=== PATIENT | male | born 1970 | race African-American/Black ===

== ENCOUNTER → 2017-08-12 | Emergency (ER) | payer MEDICAID, OTHER ==
[~2017-08-12] VITALS: Ht 182.9 cm; Wt 86.2 kg
[~2017-08-12] MED LIST: AMLODIPINE BESY10 MG ORAL; IBUPROFEN600 MG ORAL; LISINOPRIL20 MG ORAL; NKM; NORCO 5-325 TA1 EACH ORAL; ROBAXIN-750750 MG PO; SPIRONOLACTONE25 MG ORAL; TRAMADOL HCL50 MG ORAL
[2017-08-12 16:49] VITALS: BP 160/90
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
[2017-08-12 17:54] VITALS: BP 160/90
--- NOTE | 2017-08-13 08:34 | Diagnostic Imaging Report ---
Indication: Pain, status post fall, head trauma Technique: Continuous helical CT scanning of the head was performed without intravenous contrast material. Axial and coronal 5 mm sections were generated. Radiation dose was minimized using automated exposure control Dose: Total Dose Length Product - DLP 1308.[address] Dose Index - CTDIvol(s) 70.38 mGy. Comparison: 02/12/2015 Findings: The ventricular system is normal in size and configuration. There is no shift of midline structures. No abnormal extra-axial fluid collections are noted. There is no evidence of intracerebral bleeding. No other abnormal high or low density areas are noted within the brain. Normal woodall-white differentiation. Intact calvarium. Visualized orbits and sinuses are unremarkable. No significant interim change Impression: Normal CT scan of the head without contrast material. This agrees with the preliminary interpretation provided overnight by [facility]. The CT scanner at [facility] is accredited by the [employer] and the scans are performed using protocols designed to limit radiation exposure to as low as reasonably achievable to attain images of sufficient resolution adequate for diagnostic evaluation.
== END | disposition home or self-care (01) ==
LOC: EMR 17:17
DX: S00.03XA Contusion of scalp, initial encounter (principal); S00.81XA Abrasion of other part of head, initial encounter; Y04.2XXA Assault by strike against or bumped into by another person, initial encounter; Y92.89 Other specified places as the place of occurrence of the external cause; I10 Essential (primary) hypertension; R51 Headache
CPT/HCPCS: 70450; 99284

== ENCOUNTER 2017-12-10 13:01 | Emergency (ER) | payer MEDICAID ==
[~2017-12-10] VITALS: Ht 182.9 cm; Wt 86.2 kg
[2017-12-10] MEDS ORDERED: high blood pressure ORAL (13:28)
[2017-12-10] MEDS ORDERED: Enalaprilat 2.5mg/2ml Inj IV ONE (13:45)
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
--- NOTE | 2017-12-10 14:18 | Diagnostic Imaging Report ---
Indication: Headache Technique: Contiguous 5 mm thick transaxial imaging of the head obtained in a Siemens Sensation [address] scanner. Soft tissue and bone windows generated. Automatic Exposure Control was utilized. Total Dose length Product (DLP): [address] Dose Index Volume (CTDIvol): 70.38 mGy Comparison: 08/12/2017 Findings: The size and configuration of the cortical sulci, basal cisterns, and ventricles are within normal limits for age. There is no mass effect, midline shift, or edema identified. There is no evidence of acute hemorrhage or abnormal intra-axial or extra-axial fluid collections. The bones and soft tissues are unremarkable. Impression: No mass effect, edema or acute bleed. The CT scanner at [facility] is accredited by the [employer] and the scans are performed using dose optimization techniques as appropriate to a performed exam including Automatic Exposure control.
[2017-12-10 14:42] VITALS: BP 174/108
[2017-12-10 14:54] LABS: BASOPHILS % (AUTO) 1.9 % (0.0-2.0); EOSINOPHILS % (AUTO) 3.5 % (0.0-3.0); HEMATOCRIT 46.8 % (42.0-52.0); HEMOGLOBIN 16.2 G/DL (14.2-18.0); LYMPHOCYTES % (AUTO) 30.3 % (20.0-45.0); MEAN CORPUSCULAR VOLUME 95 FL (80-99); NEUTROPHILS % (AUTO) 52.2 % (45.0-75.0); PLATELET COUNT 284 K/UL (150-450); RED BLOOD COUNT 4.93 M/UL (4.70-6.10); RED CELL DISTRIBUTION WIDTH 12.8 % (11.6-14.8)
[2017-12-10 15:02] LABS: ANION GAP 9 mmol/L (5-15); BLOOD UREA NITROGEN 15 mg/dL (7-18); CARBON DIOXIDE 26 MMOL/L (21-32); CHLORIDE 104 MMOL/L (98-107); CREATININE 1.3 MG/DL (0.55-1.30); POTASSIUM 4.3 MMOL/L (3.5-5.1); SODIUM 139 MMOL/L (136-145)
[2017-12-10 15:13] LABS: ALANINE AMINOTRANSFERASE 16 U/L (12-78); ALBUMIN 3.3 G/DL (3.4-5.0); ALBUMIN/GLOBULIN RATIO 0.7 (1.0-2.7); ALKALINE PHOSPHATASE 90 U/L (46-116); ASPARTATE AMINO TRANSFERASE 17 U/L (15-37); BILIRUBIN,TOTAL 0.3 MG/DL (0.2-1.0)
[2017-12-10 15:15] LABS: APPEARANCE,URINE CLEAR; BILIRUBIN, URINE NEGATIVE (NEGATIVE); GLUCOSE, URINE (UA) NEGATIVE (NEGATIVE); KETONES,URINE NEGATIVE (NEGATIVE); LEUKOCYTE ESTERASE ,URINE NEGATIVE (NEGATIVE); NITRITE,URINE NEGATIVE (NEGATIVE); PH,URINE 6 (4.5-8.0); PROTEIN,URINE 2+ (NEGATIVE); UROBILINOGEN,URINE 4 MG/DL (0.0-1.0)
[2017-12-10 15:16] LABS: COLOR,URINE YELLOW
--- NOTE | 2017-12-10 15:24 | Diagnostic Imaging Report ---
Indication: Chest pain Comparison: 02/20/2015 A single view chest radiograph was obtained. Findings: Cardiomediastinal appearance is within normal limits for age. The lungs are clear. Pulmonary vascularity is appropriate. The diaphragmatic contour is smooth and costophrenic angles are sharp. No pleural effusions are identified. The bones are unremarkable. Impression: No acute findings
[2017-12-10] MEDS ORDERED: LORazepam Inj 2mg/ml 1ml IV ONE (15:45)
[2017-12-10 17:13] VITALS: BP 132/83
[2017-12-10 19:19] VITALS: BP 133/90
--- NOTE | 2017-12-14 12:19 | Cardiology Report ---
APPROVED REPORT EKG Measurement Heart [id number] HI [id number] Normal sinus rhythm Cannot rule out Anterior infarct, age undetermined T-wave abnormality, consider inferolateral ischemia Abnormal ECG
== END 2017-12-10 19:20 | disposition other institution (70) ==
LOC: EMR 14:01
DX: R53.1 Weakness (principal); I16.0 Hypertensive urgency; I10 Essential (primary) hypertension; R51 Headache; R55 Syncope and collapse
CPT/HCPCS: 36415; 70450; 71045; 80053; 80307; 80329; 81001; 83880; 84443; 84484; 85025; 85610; 85730; 93005; 96374; 96375; 99285

== ENCOUNTER 2018-03-09 14:00 | Emergency (ER) | payer MEDICAID ==
[~2018-03-09] VITALS: Ht 182.9 cm; Wt 81.6 kg
[~2018-03-09 14:00] MED LIST changes: +high blood pressure ORAL
[2018-03-09] MEDS ORDERED: UNOBMED (14:15)
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
[2018-03-09 15:00] VITALS: BP 145/104
--- NOTE | 2018-03-09 15:00 | Emergency Room Report ---
History of Present Illness General Chief Complaint: Syncope Source: Patient Present Illness HPI Patient is a 47-year-old male presented after a witnessed syncopal episode. Syncopal episode. Patient stated this occurred several days ago. He reports having prior history of hypertension. He reports having recently had his medications adjusted. Patient was noted to have last episode of nasal bleeding approximately 2 days ago but stated that he had been having intermittent episodes of nasal bleeding for several months. Patient states he has been doing "everything right". He reports being compliant with his blood pressure medications. He denies any severe headache. He reported having a syncopal episode after standing for several minutes. He denies any prior palpitations. He reported feeling lightheaded prior to passing out. Allergies: Coded Allergies: NO KNOWN ALLERGIES (Unverified Allergy, Unknown, 03/09/18) Patient History Past Medical History: see triage record Reviewed Nursing Documentation: PMH: Agreed; PSxH: Agreed Nursing Documentation-PMH Past Medical History: No History, Except For Hx Cardiac Problems: No - HEART DISEASE Hx Hypertension: Yes Hx Pacemaker: No Hx Asthma: No Hx COPD: No Hx Diabetes: No Hx Cancer: No Hx Gastrointestinal Problems: No Hx Dialysis: No Hx Neurological Problems: No Hx Cerebrovascular Accident: No Hx Seizures: No Hx Headaches: Yes Review of Systems All Other Systems: negative except mentioned in HPI Physical Exam Vital Signs Date Time Temp Pulse Resp B/P (MAP) Pulse Ox O2 Delivery O2 Flow Rate FiO2 03/09/18 14:06 98.4 90 18 145/104 97 Room Air Sp02 EP Interpretation: reviewed, normal General Appearance: normal inspection, well appearing, no apparent distress, alert, GCS 15, non-toxic Head: atraumatic ENT: normal ENT inspection, hearing grossly normal, normal voice, other - no nasal bleeding noted Neck: normal inspection, full range of motion, supple, no bony tend Respiratory: normal inspection, lungs clear, normal breath sounds, no respiratory distress, no retraction, no wheezing Cardiovascular #1: regular rate, rhythm, no edema Gastrointestinal: normal inspection, normal bowel sounds, non tender, soft, no guarding, no hernia Genitourinary: no CVA tenderness Musculoskeletal: normal inspection, back normal, normal range of motion Neurologic: normal inspection, alert, oriented x3, responsive, 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 Differential diagnosis included but was not limited to arrhythmia, orthostatic hypotension, hypovolemia, vasovagal, anemia among others. Because of complexity of patient's case laboratory testing and imaging studies were ordered. EKG interpreted by me showed normal sinus rhythm with a rate of [address] or T wave changes. Patient's laboratory testing was unremarkable. This may be somewhat causal for his intermittent epistaxis however he he does not appear to be intoxicated with cocaine at this time . patient will be noted to be mildly hypertensive.. There is no active bleeding from his nose. Patient had a previous history of cocaine abuse per his old chart.Patient syncope appears to be orthostatic as he was having premonitory symptoms. Labs Test 03/09/18 14:54 White Blood Count 7.3 K/UL (4.8-10.8) Red Blood Count 5.03 M/UL (4.70-6.10) Hemoglobin 15.7 G/DL (14.2-18.0) Hematocrit 48.0 % (42.0-52.0) Mean Corpuscular Volume 95 FL (80-99) Mean Corpuscular Hemoglobin 31.3 PG (27.0-31.0) Mean Corpuscular Hemoglobin Concent 32.8 G/DL (32.0-36.0) Red Cell Distribution Width 15.4 % (11.6-14.8) Platelet Count 293 K/UL (150-450) Mean Platelet Volume 5.9 FL (6.5-10.1) Neutrophils (%) (Auto) 52.0 % (45.0-75.0) Lymphocytes (%) (Auto) 34.2 % (20.0-45.0) Monocytes (%) (Auto) 7.9 % (1.0-10.0) Eosinophils (%) (Auto) 4.1 % (0.0-3.0) Basophils (%) (Auto) 1.8 % (0.0-2.0) Prothrombin Time 10.3 SEC (9.30-11.50) Prothromb Time International Ratio 1.0 (0.9-1.1) Activated Partial Thromboplast Time 33 SEC (23-33) Sodium Level 140 MMOL/L (136-145) Potassium Level 4.1 MMOL/L (3.5-5.1) Chloride Level 103 MMOL/L (98-107) Carbon Dioxide Level 28 MMOL/L (21-32) Anion Gap 9 mmol/L (5-15) Blood Urea Nitrogen 17 mg/dL (7-18) Creatinine 1.2 MG/DL (0.55-1.30) Estimat Glomerular Filtration Rate > 60 mL/min (>60) Glucose Level 131 MG/DL (74-106) Calcium Level 9.5 MG/DL (8.5-10.1) Total Bilirubin 0.3 MG/DL (0.2-1.0) Aspartate Amino Transf (AST/SGOT) 18 U/L (15-37) Alanine Aminotransferase (ALT/SGPT) 17 U/L (12-78) Alkaline Phosphatase 101 U/L (46-116) Troponin I 0.000 ng/mL (0.000-0.056) Total Protein 8.7 G/DL (6.4-8.2) Albumin 3.7 G/DL (3.4-5.0) Globulin 5.0 g/dL Albumin/Globulin Ratio 0.7 (1.0-2.7) Last Vital Signs Date Time Temp Pulse Resp B/P (MAP) Pulse Ox O2 Delivery O2 Flow Rate FiO2 03/09/18 14:06 98.4 90 18 145/104 97 Room Air Status: improved All Sam MD Mar 09, 2018 15:00
--- NOTE | 2018-03-09 15:10 | NUR ---
ED Nurse Note: blood sent down to lab
[2018-03-09 15:12] LABS: BASOPHILS % (AUTO) 1.8 % (0.0-2.0); EOSINOPHILS % (AUTO) 4.1 % (0.0-3.0); HEMOGLOBIN 15.7 G/DL (14.2-18.0); LYMPHOCYTES % (AUTO) 34.2 % (20.0-45.0); MEAN CORPUSCULAR VOLUME 95 FL (80-99); MONOCYTES % (AUTO) 7.9 % (1.0-10.0); PLATELET COUNT 293 K/UL (150-450); RED BLOOD COUNT 5.03 M/UL (4.70-6.10); RED CELL DISTRIBUTION WIDTH 15.4 % (11.6-14.8); WHITE BLOOD COUNT 7.3 K/UL (4.8-10.8)
[2018-03-09 15:25] LABS: ANION GAP 9 mmol/L (5-15); BLOOD UREA NITROGEN 17 mg/dL (7-18); CALCIUM 9.5 MG/DL (8.5-10.1); CARBON DIOXIDE 28 MMOL/L (21-32); CHLORIDE 103 MMOL/L (98-107); CREATININE 1.2 MG/DL (0.55-1.30); POTASSIUM 4.1 MMOL/L (3.5-5.1); SODIUM 140 MMOL/L (136-145)
[2018-03-09 15:30] LABS: ALANINE AMINOTRANSFERASE 17 U/L (12-78); ALBUMIN 3.7 G/DL (3.4-5.0); ALBUMIN/GLOBULIN RATIO 0.7 (1.0-2.7); ALKALINE PHOSPHATASE 101 U/L (46-116); ASPARTATE AMINO TRANSFERASE 18 U/L (15-37); BILIRUBIN,TOTAL 0.3 MG/DL (0.2-1.0)
[2018-03-09 16:59] VITALS: BP 145/104
--- NOTE | 2018-03-09 17:00 | NUR ---
ED Nurse Note: [facility]. pt has left with all his belongings, as well as DC notes and prescriptions. pt vital signs, condition, and status has been reported to ERMD. pt is able to abmulate with steady gait. ID band removed prior to Dc. instructions/papers given to the patient, patient verbalized understanding, signed.
--- NOTE | 2018-03-10 14:39 | Cardiology Report ---
APPROVED REPORT EKG Measurement Heart [id number] CO 174P56 [id number] Normal sinus rhythm Nonspecific T wave abnormality Abnormal ECG
== END 2018-03-09 16:47 | disposition home or self-care (01) ==
LOC: EMR 16:11
DX: R55 Syncope and collapse (principal); I11.9 Hypertensive heart disease without heart failure
CPT/HCPCS: 36415; 80053; 84484; 85025; 85610; 85730; 86850; 86900; 86901; 93005; 99284

== ENCOUNTER 2018-04-01 09:22 | Emergency (ER) | payer MEDICAID ==
[~2018-04-01] VITALS: Ht 182.9 cm; Wt 86.2 kg
[~2018-04-01 09:22] MED LIST changes: +UNOBMED
--- NOTE | 2018-04-01 09:39 | NUR ---
ED Nurse Note: Pt came in due to hypertension and states he ran out of his HTN medications lisinopril and amlodipine and just got it today. BP 159/97 at this time. Denies CP or SOB. Pt reports he was seen here in the ED more than a week ago for syncopal episode and was DC. Pt AAO x4, ambulates with steady gait. No respiratory distress
[2018-04-01 09:50] VITALS: BP 159/97
--- NOTE | 2018-04-01 09:55 | NUR ---
ED Nurse Note: Dr Rogers at the bed side.
--- NOTE | 2018-04-01 10:20 | NUR ---
ED Nurse Note: Pt taken to CT via annetta.
--- NOTE | 2018-04-01 10:35 | NUR ---
ED Nurse Note: Pt back from CT and stable.
--- NOTE | 2018-04-01 10:45 | NUR ---
HAND-OFF: Report given to Vivian MEDLEY.
--- NOTE | 2018-04-01 11:00 | NUR ---
ED Nurse Note: patient is in the bed tx1 in his bed, waiting CT Addendum: 04/01/18 at 1111 by JOHN patient came back from CT earlier, pt ambulatory steady gait, used restroom .
--- NOTE | 2018-04-01 11:07 | Diagnostic Imaging Report ---
Indication: Syncope Technique: Contiguous 5 mm thick transaxial imaging of the head obtained in a Siemens Sensation [address] scanner. Soft tissue and bone windows generated. Automatic Exposure Control was utilized. Total Dose length Product (DLP): 1407.[address] Dose Index Volume (CTDIvol): 70.38 mGy Comparison: 12/10/2017 Findings: The size and configuration of the cortical sulci, basal cisterns, and ventricles are within normal limits for age. There is no mass effect, midline shift, or edema identified. There is no evidence of acute hemorrhage or abnormal intra-axial or extra-axial fluid collections. The bones and soft tissues are unremarkable. There is a moderate degree of mucosal thickening within the visualized portions of the paranasal sinuses. No change from the prior exam. Impression: No mass effect, edema or acute bleed. Pansinusitis The CT scanner at [facility] is accredited by the [employer] and the scans are performed using dose optimization techniques as appropriate to a performed exam including Automatic Exposure control.
[2018-04-01] MEDS ORDERED: PROMETHAZINE-D118 ML ORAL (11:58)
[2018-04-01] MEDS ORDERED: LISINOPRIL20 MG ORAL (11:58)
[2018-04-01] MEDS ORDERED: AMLODIPINE BESY10 MG ORAL (11:58)
[2018-04-01 12:00] VITALS: BP 142/90
--- NOTE | 2018-04-01 12:00 | NUR ---
ED Nurse Note: Pt is cleared for discharge per ERMD. Discharge instrcution/paper/ prescription given and explained to the patient, patient verbalized understanding. pt is alert and oriented x4, ambulated out of ED steady gait with all belongigns. pt is stable for DC. VSS. pt ID band removed.
--- NOTE | 2018-04-01 15:42 | Emergency Room Report ---
History of Present Illness General Chief Complaint: Hypertension Source: Patient Present Illness HPI 47-year-old male presents ED for evaluation. Patient presenting with high blood pressure, states he feels dizzy and lightheaded. Denies headache or blurry vision. Denies chest pain or shortness of breath. States that he ran of his blood pressure medication a few days ago. Does not know what they are. Denies smoking or drug use. No other aggravating relieving factors. Denies any other associated symptoms Allergies: Coded Allergies: NO KNOWN ALLERGIES (Unverified Allergy, Unknown, 03/09/18) Patient History Past Medical History: HTN Past Surgical History: none Pertinent Family History: none Social History: Denies: smoking, alcohol use, drug use Immunizations: UTD Reviewed Nursing Documentation: PMH: Agreed; PSxH: Agreed Nursing Documentation-PMH Past Medical History: No History, Except For Hx Cardiac Problems: No Hx Hypertension: Yes Hx Pacemaker: No Hx Asthma: No Hx COPD: No Hx Diabetes: No Hx Cancer: No Hx Gastrointestinal Problems: No Hx Dialysis: No Hx Neurological Problems: No Hx Cerebrovascular Accident: No Hx Seizures: No Hx Headaches: Yes Review of Systems All Other Systems: negative except mentioned in HPI Physical Exam Vital Signs Date Time Temp Pulse Resp B/P (MAP) Pulse Ox O2 Delivery O2 Flow Rate FiO2 04/01/18 09:29 98.2 71 18 164/113 98 Room Air Sp02 EP Interpretation: reviewed, normal General Appearance: no apparent distress, alert, GCS 15, non-toxic Head: normocephalic, atraumatic Eyes: bilateral eye normal inspection, bilateral eye PERRL, bilateral eye EOMI ENT: hearing grossly normal, normal pharynx, no angioedema, normal voice Neck: full range of motion, supple/symm/no masses Respiratory: chest non-tender, lungs clear, normal breath sounds, speaking full sentences Cardiovascular #1: regular rate, rhythm, no edema Cardiovascular #2: 2+ carotid (R), 2+ carotid (L), 2+ radial (R), 2+ radial (L) , 2+ dorsalis pedis (R), 2+ dorsalis pedis (L) Gastrointestinal: normal bowel sounds, non tender, soft, non-distended, no guarding, no rebound Rectal: deferred Genitourinary: normal inspection, no CVA tenderness Musculoskeletal: back normal, gait/station normal, normal range of motion, non- tender Neurologic: alert, oriented x3, responsive, cell tender helper III-XII nml as tested, motor strength/tone normal, sensory intact, speech normal Psychiatric: judgement/insight normal, memory normal, mood/affect normal, no suicidal/homicidal ideation Reflexes: 3+ bicep (R), 3+ bicep (L), 3+ tricep (R), 3+ tricep (L), 3+ knee (R) , 3+ knee (L) Skin: normal color, no rash, warm/dry, well hydrated Lymphatic: no adenopathy Medical Decision Making Diagnostic Impression: Primary Impression: Hypertension Qualified Codes: I10 - Essential (primary) hypertension ER Course Hospital Course 47-year-old male presents ED complaining of elevated BP, c/o dizziness Differential diagnoses include: hypertensive urgency, hypertensive emergency, arrythmia, NE/ACS Clinical course Patient placed on stretcher. After initial history, physical exam reveals a middle-aged male in no acute distress. Cranial nerves II through XII intact or no nuchal rigidity. Remainder of exam unremarkable Initial BP 164/113 Patient was seen here this month for similar presentation. Had full lab workup which was unremarkable. I see reason to repeat. I ordered an EKG, CT head EKG - NSR, no acute ischemic changes interpreted by me CT head unremarkable Repeat blood pressure 142/90. Discussed findings with patient. Reassurance given. I sprain to the patient the importance of knowing his medications and not relying on the computer system. On review of EMR patient takes lisinopril and amlodipine. We'll provide refills of his medication patient also noting cough which is dry. We'll prescribe promethazine Safe for discharge close outpatient follow-up. States he has a PMD I. I feel this is a highly complex case requiring extensive working including EKG/Rhythm strip, Xray/CT/US, Blood/urine lab work, repeat exams while in ED, and administration of strong opiates/narcotics for pain control, admission to hospital or close patient follow up. Diagnosis - hypertension Stable and discharged to home with prescription for amlodipine, lisinopril, promethazine. Instructed to followup with PMD. Return to ED if symptoms recur or worsen EKG Diagnostic Results Rate: normal Rhythm: NSR ST Segments: no acute changes ASA given to the pt in ED: No Rhythm Strip Diag. Results EP Interpretation: yes Rhythm: NSR, no PVC's, no ectopy CT/MRI/US Diagnostic Results CT/MRI/US Diagnostic Results : Imaging Test Ordered: CT Head Impression no acute process Last Vital Signs Date Time Temp Pulse Resp B/P (MAP) Pulse Ox O2 Delivery O2 Flow Rate FiO2 04/01/18 12:00 98.2 78 18 142/90 98 Room Air Status: improved Disposition: HOME, SELF-CARE Condition: Stable Scripts D-Methorphan Hb/Prometh Hcl* (PROMETHAZINE-DM SYRUP*) 118 Ml Syrup 5 ML ORAL Q6H PRN for For Cough, #118 ML 0 Refills Prov: Zen Rogers MD 04/01/18 Lisinopril (LISINOPRIL*) 20 Mg Tablet 20 MG ORAL BID, #30 TAB Prov: Zen Rogers MD 04/01/18 Amlodipine Besylate* (AMLODIPINE BESYLATE*) 10 Mg Tablet 10 MG ORAL DAILY, #30 TAB Prov: Zen Rogers MD 04/01/18 Referrals: NON PHYSICIAN (PCP) Patient Instructions: Managing Your High Blood Pressure Zen Rogers MD Apr 01, 2018 15:42
--- NOTE | 2018-04-02 15:10 | Cardiology Report ---
APPROVED REPORT EKG Measurement Heart [id number] Normal sinus rhythm Normal ECG
== END 2018-04-01 12:00 | disposition home or self-care (01) ==
LOC: EMR 09:55
DX: I10 Essential (primary) hypertension (principal); R42 Dizziness and giddiness; J32.4 Chronic pansinusitis
CPT/HCPCS: 70450; 93005; 99284

== ENCOUNTER 2019-04-13 14:17 | Emergency (ER) | payer MEDICAID ==
[~2019-04-13] VITALS: Ht 175.3 cm; Wt 90.7 kg
[~2019-04-13 14:17] MED LIST changes: +PROMETHAZINE-D118 ML ORAL
--- NOTE | 2019-04-13 14:32 | NUR ---
ED Nurse Note: Patient is taking Lisinopril 20mg, amlodipine 10mg, Gabapentin 300mg, amoxicillin 500mg, diclorenac, ASA 81mg.
--- NOTE | 2019-04-13 15:04 | NUR ---
ED Nurse Note: pt ambulated to ed, was taken to CT right away. pt c/o dizziness and fainting today. denies head trauma. pt reports he was at neurologist yesterday (servando pulido MD)
[2019-04-13 15:05] VITALS: BP 138/94
[2019-04-13 15:40] LABS: BASOPHILS % (AUTO) 2.3 % (0.0-2.0); EOSINOPHILS % (AUTO) 4.4 % (0.0-3.0); HEMATOCRIT 50.7 % (42.0-52.0); HEMOGLOBIN 17.4 G/DL (14.2-18.0); LYMPHOCYTES % (AUTO) 32.3 % (20.0-45.0); MEAN CORPUSCULAR VOLUME 97 FL (80-99); MONOCYTES % (AUTO) 12.8 % (1.0-10.0); NEUTROPHILS % (AUTO) 48.3 % (45.0-75.0); PLATELET COUNT 234 K/UL (150-450); RED BLOOD COUNT 5.21 M/UL (4.70-6.10); RED CELL DISTRIBUTION WIDTH 13.3 % (11.6-14.8); WHITE BLOOD COUNT 8.1 K/UL (4.8-10.8)
[2019-04-13 15:48] LABS: INR 0.9 (0.9-1.1)
--- NOTE | 2019-04-13 15:50 | NUR ---
ED Nurse Note: pt ambulated to restroom with steady gait.
--- NOTE | 2019-04-13 15:51 | Diagnostic Imaging Report ---
Indications: Headache, syncope, history of CVA Technique: Spiral acquisitions obtained through the brain. Angled axial and coronal 5 x 5 mm slices were reconstructed. Total dose length product 1045 mGycm. CTDI vol(s) 53 mGy. Dose reduction achieved using automated exposure control Comparison: 04/01/2018 Findings: Low-attenuation is seen within the right hippocampal region and posterior inferior temporal lobe which is not evident previously. There is also some low-attenuation in the left parasagittal occipital lobe which is likewise not evident previously. No acute intracranial hemorrhage. No mass effect nor midline shift. Normal size ventricles and extra axial CSF spaces. Normal woodall-white differentiation. Intact calvarium. Visualized orbits are unremarkable. There is opacification of multiple sphenoid sinuses bilaterally. The mastoids are clear. Impression: Small area of low in the right hippocampal/posterior inferior temporal lobe and area of low-attenuation in the right parasagittal occipital lobe, both of which are not evident on prior 04/01/2018 exam and suspicious for acute/subacute infarcts. Patient reportedly has had recent MRI; correlation with that exam is recommended Negative for acute intracranial bleed or mass effect. Sinus disease. Findings discussed by phone with nurse practitioner Farrah in the emergency room at the time of interpretation The CT scanner at [facility] is accredited by the [employer] and the scans are performed using protocols designed to limit radiation exposure to as low as reasonably achievable to attain images of sufficient resolution adequate for diagnostic evaluation.
[2019-04-13 15:54] LABS: ANION GAP 9 mmol/L (5-15); BLOOD UREA NITROGEN 13 mg/dL (7-18); CALCIUM 9.3 MG/DL (8.5-10.1); CARBON DIOXIDE 27 MMOL/L (21-32); CHLORIDE 101 MMOL/L (98-107); CREATININE 1.1 MG/DL (0.55-1.30); POTASSIUM 4.3 MMOL/L (3.5-5.1); SODIUM 137 MMOL/L (136-145)
--- NOTE | 2019-04-13 16:00 | NUR ---
ED Nurse Note: pt reports neurological sensory deficits, decrease smell, hearing, and forgetfulness
[2019-04-13 16:06] LABS: ALANINE AMINOTRANSFERASE 35 U/L (12-78); ALBUMIN 3.7 G/DL (3.4-5.0); ALBUMIN/GLOBULIN RATIO 0.8 (1.0-2.7); ALKALINE PHOSPHATASE 98 U/L (46-116); ASPARTATE AMINO TRANSFERASE 43 U/L (15-37); BILIRUBIN,TOTAL 0.5 MG/DL (0.2-1.0); CHOLESTEROL 184 MG/DL (< 200); HDL CHOLESTEROL 50 MG/DL (40-60); TRIGLYCERIDES 168 MG/DL (30-150)
[2019-04-13 16:10] VITALS: BP 147/99
--- NOTE | 2019-04-13 16:41 | Emergency Room Report ---
History of Present Illness General Chief Complaint: Stroke Symptoms Source: Patient (Chrystal Resendiz) Present Illness HPI 48-year-old male with history of head trauma x2 months ago and multiple subacute infarcts since then here complaining of numbness and left-sided body that started at 7 AM today. Patient was seen by his neurologist Dr. lyn on a day ago, MRI and MRA were done and showed multiple infarcts. Patient is very forgetful and does not remember the name of medication. Denies unilateral weakness. No slurred speech noted. Denies headache and dizziness. Denies being on blood thinners. Denies chest pain, shortness of breath, palpitation, abdominal pain. Patient reports that he smokes tobacco on daily basis. Reports that he only occasionally drinks alcohol. Denies any drug use. We spoke to Dr. lyn and over the phone and he informed us that patient also went to a different hospital and was discharged about a week ago. 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 Patient needs to be transferred to a hospital that can have neuro intervention. Four-vessel angiogram needs to be done. [facility] was contacted and accepted the patient. (Chrystal Resendiz) Allergies: Coded Allergies: NO KNOWN ALLERGIES (Unverified Allergy, Unknown, 03/09/18) Patient History Past Medical History: see triage record Past Surgical History: none Pertinent Family History: none Social History: Reports: smoking Immunizations: UTD Reviewed Nursing Documentation: PMH: Agreed; PSxH: Agreed (Chrystal Resendiz) Nursing Documentation-PMH Past Medical History: No History, Except For Hx Cardiac Problems: Yes Hx Hypertension: Yes Hx Pacemaker: No Hx Asthma: No Hx COPD: No Hx Diabetes: No Hx Cancer: No Hx Gastrointestinal Problems: No Hx Dialysis: No History Of Psychiatric Problem: No Hx Neurological Problems: Yes Hx Cerebrovascular Accident: Yes Hx Seizures: No Hx Headaches: Yes (Chrystal Resendiz) Review of Systems All Other Systems: negative except mentioned in HPI (Chrystal Resendiz) Physical Exam Vital Signs Date Time Temp Pulse Resp B/P (MAP) Pulse Ox O2 Delivery O2 Flow Rate FiO2 04/13/19 14:24 98.1 79 16 138/94 (109) 99 Room Air Sp02 EP Interpretation: reviewed, normal General Appearance: no apparent distress, alert, GCS 15, non-toxic Head: normocephalic, atraumatic Eyes: bilateral eye normal inspection, bilateral eye PERRL ENT: hearing grossly normal, normal pharynx, no angioedema, normal voice Neck: full range of motion, supple, thyroid normal, no meningismus, supple/symm /no masses Respiratory: chest non-tender, lungs clear, normal breath sounds, no rhonchi, no retraction, no accessory muscle use, speaking full sentences Cardiovascular #1: regular rate, rhythm, no edema, no murmur, normal capillary refill Cardiovascular #2: 2+ carotid (R), 2+ carotid (L), 2+ radial (R), 2+ radial (L) Gastrointestinal: normal bowel sounds, non tender, soft, non-distended, no guarding, no rebound Rectal: deferred Genitourinary: no CVA tenderness Musculoskeletal: back normal, no calf tenderness, pelvis stable Neurologic: alert, motor strength/tone normal, oriented, oriented x3, sensory intact, responsive, speech normal Psychiatric: judgement/insight normal, memory normal, mood/affect normal, no suicidal/homicidal ideation Skin: no rash Lymphatic: no adenopathy (Chrystal Resendiz) Procedures Critical Care Time Critical Care Time i. I feel this is a highly complex case requiring extensive working including EKG/Rhythm strip, Xray/CT/US, Blood/urine lab work, repeat exams while in ED, and administration of strong opiates/narcotics for pain control, admission to hospital or close patient follow up. Total time: 60 min bedside evaluation and treatment excludes procedures (EKG). Reason for critical care: subacute CVA Possible complications: hypotension, hypertension, AK, shock, arrhythmias, metabolic acidosis, end organ damage, respiratory failure. Interventions: labs, CT, discussion with patient's neurologist. discussion with neurology at [facility]. Course: Presenting after temporary slurred speech. Dizziness and blurred vision for weeks. CT shows multiple subacute infarcts. Stroke scale 1 (some left-sided sensory deficit). I spoke to neurologist who stated that patient requires a four-vessel angiogram to rule out NOTCH MACHINE OPERATOR vasculitis. Requires higher level of care. Discussed case with [facility] who accepted patient. Given aspirin in ED Consultations: nursing staff, EMS, family Performed by: Dr Rogers Tolerated well condition = critical j. because of unstable vital signs this patient had a condition that could potentially threaten life or limb. I feel this is a critical patient who required my full attention while patient was considered critical. Total Critical Care Time excluding procedures was greater than 60 minutes (Zen Rogers MD) Medical Decision Making PA Attestation All my diagnosis and treatment plans were reviewed ad discussed with my supervising physician Dr. Rogers (Chrystal Resendiz) Diagnostic Impression: Primary Impression: CVA (cerebral vascular accident) ER Course 48-year-old male with history of head trauma x2 months ago and multiple subacute infarcts since then here complaining of numbness and left-sided body that started at 7 AM today. Patient was seen by his neurologist Dr. lyn on a day ago, MRI and MRA were done and showed multiple infarcts. Patient is very forgetful and does not remember the name of medication. Denies unilateral weakness. No slurred speech noted. Denies headache and dizziness. Denies being on blood thinners. Denies chest pain, shortness of breath, palpitation, abdominal pain. Patient reports that he smokes tobacco on daily basis. Reports that he only occasionally drinks alcohol. Denies any drug use. We spoke to Dr. lyn and over the phone and he informed us that patient also went to a different hospital and was discharged about a week ago. 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 Patient needs to be transferred to a hospital that can have neuro intervention. Four-vessel angiogram needs to be done. [facility] was contacted and accepted the patient. Ddx considered but are not limited to: Dizziness due to alcohol intoxication, dizziness unspecified, dizziness due to head trauma, dizziness secondary to cardiac reasons, CVA, TIA Vital signs: are WNL, pt. is afebrile H&PE are most consistent with: Multiple subacute occipital and temporal infarct on the right side, ORDERS: Stroke order set ER intervention: ASA Patient was transferred to [facility] for admission with diagnosis of stroke, NOTCH MACHINE OPERATOR vasculitis under supervision of : Ken pt stable at time of admission (Chrystal Resendiz) ER Course PA Patient seen by ARIANNA Resendiz. I agree with her assessment. I spoke to patient. I believe that patient will require higher level of care to obtain this four-vessel angiogram and requires evaluation by interventional neurology. Spoke to [facility] who accepted the patient (Zen Rogers MD) EKG Diagnostic Results Rate: normal Rhythm: NSR ST Segments: no acute changes Other Impression No acute ST changes (Chrystal Resendiz) Chest X-Ray Diagnostic Results Chest X-Ray Diagnostic Results : Chest X-Ray Ordered: Yes # of Views/Limited/Complete: 1 View Indication: Other EP Interpretation: Yes PA Xray: Interpretation reviewed, by supervising MD, and agrees with findings. Interpretation: no consolidation, no effusion, no pneumothorax, no acute cardiopulmonary disease Impression: No acute disease Electronically Signed by: Chrystal Weir PA-C (Chrystal Resendiz) CT/MRI/US Diagnostic Results CT/MRI/US Diagnostic Results : Imaging Test Ordered: head CT no contrast Impression Multiple subacute infarcts in right temporal and occipital (Chrystal Resendiz) Last Vital Signs Date Time Temp Pulse Resp B/P (MAP) Pulse Ox O2 Delivery O2 Flow Rate FiO2 04/13/19 16:10 98.1 70 19 147/99 100 Room Air (Chrystal Resendiz) Status: improved (Zen Rogers MD) Disposition: XFER SHT-TRM HOSP Condition: Critical Referrals: NON PHYSICIAN (PCP) Chrystal Resendiz Apr 13, 2019 16:41 Zen Rogers MD Apr 13, 2019 17:44
--- NOTE | 2019-04-13 16:54 | Diagnostic Imaging Report ---
Indication: Shortness of breath Technique: One view of the chest Comparison: 12/10/2017 Findings: Lungs and pleural spaces are clear. Heart size is normal. No significant change Impression: No acute process
--- NOTE | 2019-04-13 17:19 | NUR ---
ED Nurse Note: called pharmacy for medication. per pharmacy they will bring ASA 324 to ER
[2019-04-13 17:32] LABS: APPEARANCE,URINE CLEAR; BILIRUBIN, URINE NEGATIVE (NEGATIVE); COLOR,URINE PALE YELLOW; GLUCOSE, URINE (UA) NEGATIVE (NEGATIVE); KETONES,URINE NEGATIVE (NEGATIVE); LEUKOCYTE ESTERASE ,URINE NEGATIVE (NEGATIVE); NITRITE,URINE NEGATIVE (NEGATIVE); PH,URINE 7 (4.5-8.0); PROTEIN,URINE NEGATIVE (NEGATIVE); UROBILINOGEN,URINE NORMAL MG/DL (0.0-1.0)
--- NOTE | 2019-04-13 17:56 | NUR ---
ED Nurse Note: telephone report given to GALINDO Metz from [facility]. [facility] unit RN 52 at bedside. report given to GALINDO Hines. pt vss. pt aox4, on room air. NAD noted.
[2019-04-13 18:02] VITALS: BP 154/104
--- NOTE | 2019-04-13 18:04 | NUR ---
TRANSFER Patient transferred to [facility] as ordered, per ERMD . Report given to [facility]. Belongings and medications given to [facility] unit RN 52 with GALINDO Hines.
== END 2019-04-13 18:05 | disposition short-term general hospital (02) ==
LOC: EMR 14:50
DX: I63.9 Cerebral infarction, unspecified (principal); F17.200 Nicotine dependence, unspecified, uncomplicated; I10 Essential (primary) hypertension
CPT/HCPCS: 36415; 70450; 71045; 80053; 80061; 81003; 84484; 85025; 85610; 85730; 93005; Z7502; 99291